=== PATIENT | female | born 1980 | race Caucasian/White ===

== ENCOUNTER 2018-12-21 13:18 | Day surgery (SDC) | payer OTHER ==
[~2018-12-21] VITALS: Ht 162.6 cm; Wt 83.0 kg
[~2018-12-21 13:18] MED LIST: ONDA4TAB10 PO; RANI300C PO; TRAM-47 PO; TRAM50TA2 PO
[2018-12-21 13:57] VITALS: BP 110/77
[2018-12-21] MEDS ORDERED: LACTATED RINGERS 1,000 ML IV SCH (14:03)
[2018-12-21] MEDS ORDERED: MULTIVITAMIN PO (14:04)
[2018-12-21] MEDS ORDERED: FISH OIL PO (14:04)
[2018-12-21 14:14] LABS: HCG UR SG 1.029 (1.003-1.030)
[2018-12-21] MEDS ORDERED: FENTANYL PF 250 MCG/5ML ONE (14:18)
[2018-12-21] MEDS ORDERED: MIDAZOLAM 1 MG/ML, 2ML ONE (14:18)
[2018-12-21] MEDS ORDERED: PROPOFOL 10 MG/ML, 20ML ONE (14:19)
[2018-12-21] MEDS ORDERED: CEFAZOLIN 1,000 MG ONE ×2 (14:20)
[2018-12-21] MEDS ORDERED: SODIUM CHLORIDE 0.9% PF 10ML ONE (14:20)
[2018-12-21] MEDS ORDERED: DEXAMETHASONE 4 MG/ML, 1ML ONE ×2 (14:21)
[2018-12-21] MEDS ORDERED: KETOROLAC 30 MG/1 ML ONE (14:21)
[2018-12-21] MEDS ORDERED: ONDANSETRON 2MG/ML, 2ML ONE (14:22)
[2018-12-21 14:38] LABS: BASOPHILS # (AUTO) 0.07 x10^3/uL (0-0.1); BASOPHILS % (AUTO) 1 % (0-1); EOSINOPHILS % (AUTO) 3 % (1-7); LYMPHOCYTES # (AUTO) 1.83 x10^3/uL (1-3.4); LYMPHOCYTES % (AUTO) 25 % (22-44); MD NO; MEAN CORPUSCULAR HEMOGLOBIN 29.9 pg (27.0-34.8); MEAN CORPUSCULAR HGB CONC 33.9 g/dL (32.4-35.8); MEAN CORPUSCULAR VOLUME 88.3 fL (80-100); MEAN PLATELET VOLUME 9.3 fL (7.4-10.4); MONOCYTES # (AUTO) 0.53 x10^3/uL (0.2-0.8); MONOCYTES % (AUTO) 7 % (2-9); NEUTROPHILS # (AUTO) 4.83 x10^3/uL (1.8-6.8); NEUTROPHILS % (AUTO) 65 % (42-75); PLATELET COUNT 353 x10^3/uL (130-400); RED BLOOD COUNT 4.57 x10^6/uL (3.82-5.3); RED CELL DISTRIBUTION WIDTH 13.6 % (9.6-15.2)
[2018-12-21] MEDS ORDERED: BUPIVACAINE/PF 0.25% ONE (15:05)
[2018-12-21] MEDS ORDERED: EPINEPHRINE 1 MG/ML, 1ML ONE (15:05)
[2018-12-21] MEDS ORDERED: OXYcodone 5 MG/5 ML ORAL.SOL UDC PO PRN (15:30)
[2018-12-21] MEDS ORDERED: HALOPERIDOL 5 MG/ML IV PRN (15:30)
[2018-12-21] MEDS ORDERED: PROMETHAZINE 25 MG/ML, 1ML IV PRN (15:30)
[2018-12-21] MEDS ORDERED: ACETAMINOPHEN 325 MG TABLET PO PRN (15:30)
[2018-12-21] MEDS ORDERED: LABETALOL 5MG/ML, 20ML IV PRN (15:30)
[2018-12-21] MEDS ORDERED: FENTANYL PF 100 MCG/2ML IV PRN (15:30)
[2018-12-21] MEDS ORDERED: PROMETHAZINE 12.5 MG SUPP PR PRN (15:30)
[2018-12-21] MEDS ORDERED: ONDANSETRON ODT 8 MG PO PRN (15:30)
[2018-12-21] MEDS ORDERED: HYDROmorphone 2 MG/ML, 1ML IVPush PRN (15:30)
[2018-12-21] MEDS ORDERED: MEPERIDINE/PF 25MG/0.5ML IVPush PRN (15:30)
[2018-12-21] MEDS ORDERED: ONDANSETRON 2MG/ML, 2ML IV PRN (15:30)
[2018-12-21] MEDS ORDERED: hydrALAzine 20 MG/ML, 1ML IV PRN (15:30)
[2018-12-21] MEDS ORDERED: PROMETHAZINE 25 MG SUPP PR PRN (15:30)
[2018-12-21] MEDS ORDERED: PROMETHAZINE 25 MG/ML, 1ML IM PRN ×2 (15:30)
[2018-12-21] MEDS ORDERED: MORPHINE SULFATE 4 MG/ML, 1ML IVPush PRN (15:30)
[2018-12-21] MEDS ORDERED: OXYcodone 5 MG/5 ML ORAL.SOL UDC ONE (16:30)
[2018-12-21] MEDS ORDERED: ACETAMINOPHEN 650 MG/20.3 ML UDC ONE (16:31)
== END 2018-12-21 18:55 | disposition home or self-care (01) ==
LOC: OR 13:18
PROVIDERS: ATTEND Specialist
DX: N84.1 Polyp of cervix uteri (principal); N93.9 Abnormal uterine and vaginal bleeding, unspecified; N92.0 Excessive and frequent menstruation with regular cycle
CPT/HCPCS: 36415; 58563; 81025; 85025; 88305; J0171; J0690; J1100; J1885; J2250; J2405; J2704; J3010; J3490; J7120